=== PATIENT | male | born 1970 | race Caucasian/White ===

== ENCOUNTER 2017-09-29 09:08 | Emergency (ER) | payer OTHER ==
[2017-09-29 09:56] VITALS: BP 121/69
--- NOTE | 2017-09-29 10:25 | UC ---
FLU HPI - HPI Summary HPI Summary: Day 3 cough, got feeling really bad this morning with body aches, fever cough-- patient did not get a flu vaccine,is not using his q-nasal or dulera - History of Current Complaint Chief Complaint: UCRespiratory Stated Complaint: CONGESTION COUGH RUNNY NOSE Time Seen by Provider: 09/29/17 10:16 Hx Obtained From: Patient Onset/Duration: Sudden Onset Severity Currently: Mild Severity Initially: Mild Pain Intensity: 0 Associated Signs & Symptoms: Positive: Fever, Myalgia, Cough, Headache, Vomiting - times one this morning - Allergy/Home Medications Allergies/Adverse Reactions: Allergies Allergy/AdvReac Type Severity Reaction Status Date / Time No Known Allergies Allergy Verified 09/29/17 09:49 Home Medications: Home Medications Ibuprofen TAB* [Motrin TAB* 400 MG] 400 mg PO Q6H PRN 09/29/17 [History Confirmed 09/29/17] PMH/Surg Hx/FS Hx/Imm Hx Previously Healthy: No Respiratory History: Asthma - Surgical History Surgical History: Yes Surgery Procedure, Year, and Place: APPENDECTOMY- 5-6 YEARS AGO. sinus surgery - Family History Known Family History: Positive: None - Social History Occupation: Employed Full-time Lives: With Family Alcohol Use: Rare Substance Use Type: None Smoking Status (MU): Never Smoked Tobacco Review of Systems Constitutional: Fever, Chills, Fatigue Skin: Negative Eyes: Negative ENT: Nasal Discharge, Sinus Congestion Respiratory: Cough Cardiovascular: Negative Gastrointestinal: Negative Genitourinary: Negative Motor: Negative Neurovascular: Negative Musculoskeletal: Arthralgia, Myalgia Neurological: Headache Psychological: Negative Is Patient Immunocompromised?: No All Other Systems Reviewed And Are Negative: Yes Physical Exam Triage Information Reviewed: Yes Appearance: Well-Nourished, Ill-Appearing - mild-moderate, Pain Distress - mild Vital Signs: Initial Vital Signs Temp 99.2 F 09/29/17 09:51 Pulse 120 09/29/17 09:51 Resp 20 09/29/17 09:51 BP 121/69 09/29/17 09:51 Pulse Ox 94 09/29/17 09:51 Vital Signs Reviewed: Yes Eye Exam: Normal Eyes: Positive: Conjunctiva Clear ENT Exam: Normal ENT: Positive: Normal ENT inspection, Hearing grossly normal, Pharynx normal, Nasal congestion, TMs normal - bilateral cerumen, Uvula midline. Negative: Tonsillar swelling, Tonsillar exudate, Trismus, Muffled voice, Hoarse voice, Dental tenderness, Sinus tenderness Dental Exam: Normal Neck exam: Normal Neck: Positive: Supple, Nontender, No Lymphadenopathy Respiratory Exam: Normal Respiratory: Positive: Chest non-tender, No respiratory distress, No accessory muscle use, Wheezing Cardiovascular Exam: Other Cardiovascular: Positive: No Murmur, Pulses Normal, Brisk Capillary Refill, Tachycardia Musculoskeletal Exam: Normal Musculoskeletal: Positive: Strength Intact, ROM Intact, No Edema Neurological Exam: Normal Neurological: Positive: Alert, Muscle Tone Normal Psychological Exam: Normal Skin Exam: Normal Diagnostics - Laboratory Diagnostic Studies Completed/Ordered: Influenza A/B (-) - Radiology No standard instances Xray Interpretation: No Acute Changes Radiology Interpretation Completed By: ED Physician, Radiologist Re-Evaluation - Re-Evaluation First Eval Change: Improved - after 2 nd neb increase airmovement Sat 97% HR 116 resp easy and unlabored Flu Course/Dx - Course Course Of Treatment: prednisone, albuterol, zithromax, rest increase fluids follow with pcp - Differential Dx/Diagnosis Provider Diagnoses: Bronchitis with acute exacerbation bronchospasm Discharge - Discharge Plan Condition: Stable Disposition: HOME Prescriptions: Albuterol HFA INHALER* [Ventolin HFA Inhaler*] 2 puff INH Q4H PRN #1 mdi PRN Reason: cough/wheeze/chest tightness Azithromycin TAB* [Zithromax TAB (Z-NARESH) 250 mg #6 tabs] 2 tab PO .TODAY, THEN 1 DAILY #1 naresh predniSONE TAB* [Deltasone TAB*] 20 mg PO DAILY #9 tab Patient Education Materials: Acute Bronchitis (ED), Bronchospasm (ED), How to Use a Metered-Dose Inhaler and a Spacer (ED) Referrals: Jono Panchal MD [Primary Care Provider] - If Needed
--- NOTE | 2017-09-29 10:42 | RAD ---
INDICATION: Shortness of breath fever and cough. COMPARISON: Comparison is made with prior study from July 12, 2011. TECHNIQUE: Dual-energy PA and lateral views of the chest were obtained. FINDINGS: The heart is within normal limits in size. Mediastinal and hilar contours appear within normal limits. The lungs are clear. No pleural effusion is present. IMPRESSION: NO EVIDENCE FOR ACTIVE CARDIOPULMONARY DISEASE.
[2017-09-29] MEDS: Albuterol/Ipratropium NEB.SOL* Albuterol 2.5 MG/Ipratropium 0.5 MG 3 ML INH ONE (10:43)
[2017-09-29] MEDS: predniSONE TAB* 20 MG PO ONE (11:08)
[2017-09-29] MEDS: Albuterol 2.5 MG/3 ML NEB.SOL* (0.083%) INH ONE (11:25)
== END 2017-09-29 12:18 ==
LOC: UCCORT 09:08
DX: J20.9 Acute bronchitis, unspecified (principal)
CPT/HCPCS: 71046; 87502; 99213; A9270-GY; G0463; J7512